=== PATIENT | male | born 1950 | race Caucasian/White ===

== ENCOUNTER 2018-04-24 07:18 | Day surgery (SDC) | payer OTHER, MEDICARE ==
[2018-04-23 10:55] LABS: Absolute Lymphocytes (CBC) 2.1 K/uL (0.7-4.9); Absolute Monocytes 0.7 K/uL (0.1-1.3); Absolute Neutrophil 5.1 K/uL (1.8-8.0); Basophils % 0.8 % (0-1.3); Eosinophils % 1.8 % (0-4.4); Hematocrit 46.2 % (39.6-49.0); Lymphocytes % 25.6 % (15.3-44.8); MPV 7.6 fL (7.6-11.3); Monocytes % 8.5 % (3.3-12.3)
[2018-04-23 11:02] LABS: Potassium 4.3 mmol/L (3.5-5.1)
--- NOTE | 2018-04-23 11:06 | EKG ---
Test Date: 2018-04-23 Test Time: 10:50:59 Transfer Car Operator Drier: RAFFI MEASUREMENT RESULTS: Intervals: Rate: 66 RI: 158 QRSD: 100 QT: 410 QTc: 429 [place]: P: 52 RI: 158 QRS: 15 T: 74 INTERPRETIVE STATEMENTS: Normal sinus rhythm Normal ECG No previous ECG available for comparison Electronically Signed On 04-23-18 11:05:44 JEWELRY MANAGER by Sanjay Durand
--- NOTE | 2018-04-23 11:39 | RAD REPORT ---
EXAM DESCRIPTION: RAD - Chest Pa And Lat (2 Views) - 04/23/2018 11:02 am CLINICAL HISTORY: preop Chest pain. COMPARISON: No comparisons FINDINGS: The lungs are clear. The heart is upper limit of normal in size. No displaced fractures. IMPRESSION: No acute or concerning finding suspected.
[2018-04-24] MEDS ORDERED: Ringers Lactate 1,000 ML IV ONE (08:20)
[2018-04-24] MEDS ORDERED: CIPROFLOXACIN 400 MG/200 ML IV ONE (08:20)
[2018-04-24] MEDS ORDERED: MIDAZOLAM HCL 2 MG/2 ML INJ ONE (09:04)
[2018-04-24] MEDS ORDERED: FENTANYL CITR 100 MCG/2 ML ONE (09:04)
[2018-04-24] MEDS ORDERED: PROPOFOL 200 MG/20 ML VIAL IV ONE (09:04)
[2018-04-24] MEDS ORDERED: ONDANSETRON 4 MG/2 ML VIAL ONE (09:05)
[2018-04-24] MEDS ORDERED: LIDOCAINE 2% MPF 5 ML VIAL ONE (09:05)
--- NOTE | 2018-04-24 09:36 | P.BOP ---
Preoperative diagnosis: infected back subcutaneous mass Postoperative diagnosis: same Primary procedure: Excisional biospy infected back subcutaneous mass 5x5 cm Estimated blood loss: <10cc Specimen: infected mass Findings: infected back subcutaneous mass Anesthesia: General Complications: None Transferred to: Recovery Room Condition: Good
[2018-04-24] MEDS ORDERED: CODEINE 30MG/APAP 300MG TAB ONE (11:40)
--- NOTE | 2018-04-24 20:17 | OP ---
Date of Procedure: 04/24/2018 Surgeon: Otilio Waite MD Preoperative Diagnosis: Infected back, subcutaneous mass, tender. Postoperative Diagnosis: Infected back, subcutaneous mass, tender. Procedure: Excisional biopsy of infected back, subcutaneous mass, 5 x 5 cm with drainage of an absce ss. Estimated Blood Loss: Less than 10 cc. Specimen: Infected mass. Findings: The patient has an infected mass, underneath the patient has an abscess that had some locu lations present. The mass was removed. The abscess was drained. The area is about 5 x 5 cm. Anesthesia: General plus local. Indications: This is a case of a 68-year-old patient, who comes to us with an erythema and drainage and ulceration of the back area with an induration about 5 x 5 cm and subcutaneous mass with infectio n and abscess. The patient said he had a mass there smaller before, but in the last few days, it is getting worse. He has been on antibiotics before but does not seem to be resolving the issue. Benef its, alternatives, and risks of excisional biopsy of infected mass with abscess drainage fully explai maryann to the patient, which include but are not limited to infection, bleeding, damage to adjacent stru ctures, anesthesia complication, nonhealing wound, ND, and even . He also understands this migh t not relieve any symptoms. He might need more than one surgical intervention. He understood, kendra d a consent. The area of concern was marked by me and the patient in the holding room. Description Of Procedure: The patient was brought to the operating room, placed in supine position. Anesthesia was done without complication. A time-out was called. The patient was placed in lateral decubitus position with proper protection. The back area was prepped and draped in a sterile fashio n. Local anesthesia was applied followed by an incision on the wedge fashion to include the skin sin ce there is an ulceration and the biopsy have to be done. The incision was carried down to deep subc utaneous tissue and then we also found that the patient has an abscess component to it. We cleaned t he entire area about 5 x 5 cm with some loculations and tunneling that were carefully explored and dr luque. The area was irrigated. Hemostasis was obtained. Cultures were obtained and the area was pa cked with wet-to-dry dressing. The patient tolerated the procedure well. The patient was sent to re covery in stable condition. Disposition: Home. Activity: As tolerated. No heavy lifting. Followup: Follow up in my office in 1 week. Call for appointment [phone]. Keep area dry until shreyas orrow. Medications: See orders. PANCHITO/ALBERTO Voice ID: [id number] Report ID: [id number]
== END 2018-04-24 12:14 | disposition home health service (06) ==
LOC: OR 07:18
PROVIDERS: ATTEND Surgery
PROC: 0J970ZZ Drainage of Back Subcutaneous Tissue and Fascia, Open Approach (ICD-10-PCS; 2018-04-24)
PROC: 0JB70ZZ Excision of Back Subcutaneous Tissue and Fascia, Open Approach (ICD-10-PCS; principal; 2018-04-24 08:45)
DX: L72.0 Epidermal cyst (principal); L02.212 Cutaneous abscess of back [any part, except buttock and flank]; I10 Essential (primary) hypertension; Z79.82 Long term (current) use of aspirin; Z80.8 Family history of malignant neoplasm of other organs or systems; Z83.3 Family history of diabetes mellitus; Z82.49 Family history of ischemic heart disease and other diseases of the circulatory system
CPT/HCPCS: 10060; 11406; 36415; 71046; 80048; 85025; 87070; 87075; 87205 ×2; 88304; 93005; J0744; J2250; J2405; J2704; J3010

== ENCOUNTER 2022-12-04 15:07 | Emergency (ER) | payer OTHER ==
--- OUTSIDE RECORDS SUMMARY | 2022-12-04 16:00 | XMS REPORT | Continuity of Care Document ---
:[address] [facility] t Address [address] [place] [address] [place] [id number] Care Team Providers Name Role Phone Pcp, Patient Does Not Have A Primary Care Physician +[id number] Therapy, Adc Covid Infusion Attending Clinician Unavailable Harpreet Humphries MD Attending Clinician HARPREET HUMPHRIES Attending Clinician Unavailable ANTOINE Attending Clinician Unavailable Carol Reyes Attending Clinician [phone] Doctor Unassigned, [place] Attending Clinician Unavailable ANTOINE Admitting Clinician Unavailable Payers Payer Name Policy Type Policy Number Effective Date Expiration Date S ourimani MEDICARE PART A \T\ [id number] 2014 B 00:00:00 [facility] [id number] 2016 MEDICARE SUPPLEMENT 00:00:00 [facility] [id number] (MEDICARE REPLACEMENT/ADVANTA GE - PPO) Problems Condition Condition Condition Status Onset Resolution Last Treating Co mments Source Name Details Category Date Date Treatment Clinician Date Hypertensi Hypertensi Problem Active 2020-05 S weeny ve ve 0-01 Communi disorder Disorder 00:00: [facility] Hyperglyce Hyperglyce Problem Active 2020-05 S weeny jyoti jyoti 0-01 Communi 00:00: ty 00 [facility] Allergies, Adverse Reactions, Alerts Allergy Allergy Status Severity Reaction(s) Onset Inactive Treating Comm ents Source Name Type Date Date Clinician Cephalex Propensi Active Other - See 2017 U nivers in ty to comments 8-14 ity of adverse 00:00: [place] reaction 00 Medical s Branch CEPHALEX DRUG Active Other-[facility]nt [facility] ers IN INGREDI 12-18 ity of 00:00: [place] 00 Medical Branch Social History Social Habit Start Date Stop Date Quantity Comments Source Tobacco use and 2016-12-18 2016-12-18 Never used [facility] [place] exposure 00:00:00 00:00:00 Medical Branch Sex Ass[birth year] At [birth year] [facility] [place] 00:00:00 00:00:00 Medical Branch Smoking Status Start Date Stop Date Source Never Smoker [facility] Medications Ordered Filled Start Stop Current Ordering Indication Dosage Frequency Signature Comments Components Source Medication Medication Date Date Medication? Clinician (SIG) Name Name casirivimab 2020-05- No [id number] 1200mg 1,200 mg, Univers -imdevimab 0-01 02-04 Subcutaneo it y of (REGEN-COV 19:30: 18:30 [place], ONCE, [place] (EUA[place] 00 :00 1 dose, On Medical injection Fri Branch 1,200 mg 02/04/21 at 1430, Routine pravastatin 2016-05 Yes 20mg Take 20 mg Univers 20 mg 2-01 by mouth ity of tablet 08:11: at [place] 15 bedtime. Medical Branch LISINOPRIL 2016-05 Yes Take by [facility] ers ORAL 2-01 mouth. ity of 08:11: [place] 15 Medical Branch hydroCHLORO 2016-05 Yes 12.5mg Take 12.5 Univers thiazide 2-01 mg by ity of 12.5 mg 08:11: mouth [place] capsule 15 daily. Medical Branch verapamil 2016-05 Yes 120mg Take 120 Uni vers 120 mg 2-01 mg by ity of tablet 08:11: mouth 3 [place] 15 (three) Medical times Branch daily. pravastatin 2016-05 Yes 20mg Take 20 mg Univers 20 mg 2-01 by mouth ity of tablet 08:11: at [place] 15 bedtime. Medical Branch LISINOPRIL 2016-05 Yes Take by [facility] ers ORAL 2-01 mouth. ity of 08:11: [place] 15 Medical Branch hydroCHLORO 2016-05 Yes 12.5mg Take 12.5 Univers thiazide 2-01 mg by ity of 12.5 mg 08:11: mouth [place] capsule 15 daily. Medical Branch verapamil 2016-05 Yes 120mg Take 120 Uni vers 120 mg 2-01 mg by ity of tablet 08:11: mouth 3 [place] 15 (three) Medical times Branch daily. methylPREDN 2017-0 Yes 84mg Take 21 Uni vers ISolone 8-14 tablets by ity of (MEDROL, 00:00: mouth [place] ELMER,) 4 mg 00 SEE-INSTRU Med ical tablets CTIONS. Branch follow package directions diclofenac 2017-0 Yes 75mg Take 1 Unive rs 75 mg EC 8-14 tablet by ity of tablet 00:00: mouth 2 [place] 00 (two) Medical times Branch daily with meals. methylPREDN 2017-0 Yes 84mg Take 21 Uni vers ISolone 8-14 tablets by ity of (MEDROL, 00:00: mouth [place] ELMER,) 4 mg 00 SEE-INSTRU Med ical tablets CTIONS. Branch follow package directions diclofenac 2017-0 Yes 75mg Take 1 Unive rs 75 mg EC 8-14 tablet by ity of tablet 00:00: mouth 2 [place] 00 (two) Medical times Branch daily with meals. hydrochloro hydrochloro No 1 Q1D hydrochlor [place] thiazide 25 thiazide 25 othiazide Communi mg tablet mg tablet 25 mg ty Take 1 Take 1 tablet Hospita tablet tablet Take 1 l every day every day tablet Cli nics by oral by oral every day route. route. by oral route. ivermectin ivermectin No 1 BID ivermectin [place] 3 mg tablet 3 mg tablet 3 mg C ommuni Take 1 Take 1 tablet ty tablet tablet Take 1 Hospita twice a day twice a day tablet l by oral by oral twice a Clinic s route as route as day by directed directed oral route for 5 days. for 5 days. as directed for 5 days. lisinopril lisinopril No 1 Q1D lisinopril [place] 40 mg 40 mg 40 mg Communi tablet Take tablet Take tablet ty 1 tablet 1 tablet Take 1 Hospi ta every day every day tablet l by oral by oral every day Clin ics route. route. by oral route. pravastatin pravastatin No 1 Q1D pravastati [place] 40 mg 40 mg n 40 mg Communi tablet Take tablet Take tablet ty 1 tablet 1 tablet Take 1 Hospi ta every day every day tablet l by oral by oral every day Clin ics route. route. by oral route. prednisone prednisone No 1 BID prednisone [place] 20 mg 20 mg 20 mg Communi tablet Take tablet Take tablet ty 1 tablet 1 tablet Take 1 Hospi ta twice a day twice a day tablet l by oral by oral twice a Clinic s route as route as day by directed directed oral route for 7 days. for 7 days. as directed for 7 days. verapamil verapamil No 1 TID verapamil [place] 40 mg 40 mg 40 mg Communi tablet Take tablet Take tablet ty 1 tablet 3 1 tablet 3 Take 1 H ospita times a day times a day tablet 3 l by oral by oral times a Clinic s route. route. day by oral route. Zithromax Zithromax No Zithromax [place] Z-Elmer 250 Z-Elmer 250 Z-Elmer 250 Communi mg tablet mg tablet mg tablet ty TAKE 2 TAKE 2 TAKE 2 Hospita TABLETS TABLETS TABLETS l (500 MG) BY (500 MG) BY (500 MG) Clinics ORAL ROUTE ORAL ROUTE BY ORAL ONCE DAILY ONCE DAILY ROUTE ONCE FOR 1 DAY FOR 1 DAY DAILY FOR THEN 1 THEN 1 1 DAY THEN TABLET (250 TABLET (250 1 TABLET MG) BY ORAL MG) BY ORAL (250 MG) ROUTE ONCE ROUTE ONCE BY ORAL DAILY FOR 4 DAILY FOR 4 ROUTE ONCE DAYS DAYS DAILY FOR 4 DAYS Immunizations Ordered Filled Immunization Date Status Comments [facility] e Immunization Name Name COVID-19, mRNA, COVID-19, mRNA, 2020-08-01 Completed [facility] LNP-S, PF, 100 LNP-S, PF, 100 00:00:00 [facility] mcg/0.5 mL dose mcg/0.5 mL dose SARS-COV-2 COVID-19 2020-08-01 Completed Unive rsity of MODERNA VACCINE 00:00:00 [facility] SARS-COV-2 COVID-19 2020-08-01 Completed Unive rsity of MODERNA VACCINE 00:00:00 [facility] COVID-19, mRNA, COVID-19, mRNA, 2020-07-04 Completed [facility] LNP-S, PF, 100 LNP-S, PF, 100 00:00:00 [facility] mcg/0.5 mL dose mcg/0.5 mL dose SARS-COV-2 COVID-19 2020-07-04 Completed Unive rsity of MODERNA VACCINE 00:00:00 [facility] SARS-COV-2 COVID-19 2020-07-04 Completed Unive rsity of MODERNA VACCINE 00:00:00 [facility] Vital Signs Vital Name Observation Time Observation Value Comments Source Systolic blood 2021-02-04 19:17:00 159 mm[Hg] Univer sity of pressure [facility] Diastolic blood 2021-02-04 19:17:00 96 mm[Hg] Unive rsity of pressure [facility] Heart rate 2021-02-04 19:17:00 87 /min [facility] Body temperature 2021-02-04 19:17:00 36.94 [facility] [place] [facility] Respiratory rate 2021-02-04 19:17:00 18 /min [facility] Oxygen saturation in 2021-02-04 19:17:00 95 /min [facility] blood by [facility] Pulse oximetry Branch Body height 2021-02-04 18:09:00 180.3 cm [facility] Body weight 2021-02-04 18:09:00 112.492 kg [facility] BMI 2021-02-04 18:09:00 34.59 kg/m2 [facility] BP Diastolic 2021-02-04 00:00:00 108 mm[Hg] [facility] s Height 2021-02-04 00:00:00 71 [in_i] [facility] s BMI (Body Mass 2021-02-04 00:00:00 34.6 kg/m2 [facility] s BP Systolic 2021-02-04 00:00:00 173 mm[Hg] [facility] s Body Weight 2021-02-04 00:00:00 3971.2 [oz_av] [facility] Procedures Procedure Date / Time Performed Performing Clinician [facility] e CONSENT/REFUSAL FOR 2021-02-04 05:01:00 Doctor Unassigned, No Un [facility] DIAGNOSIS AND Name Medical Media TREATMENT Plan of Care Planned Activity Planned Date Details Comments Source Instructions [facility] Encounters Start End Encounter Admission Attending Care Care Encounter Source Date/Time Date/Time Type Type Clinicians Facility Department ID 2021-02-04 2021-02-04 Nurse Therapy, Adc Covid Infusion [facility] [id number] Univers 13:00:03 14:00:03 Visit Harpreet Humphries [id number] [place] [id number] [place] [id number] [place] [id number] Branch 2021-02-04 2021-02-04 Outpatient [facility] [id number] Univers 13:30:00 13:30:00 HARPREET itarelis of [facility] 2021-02-04 2021-02-04 Outpatient [facility] 111 [place] 01:03:00 01:03:00 _L 1001 Commun i ty Hospita l [facility] 2021-02-04 2021-02-04 Outpatient [facility] b1e [id number] 00:00:00 00:00:00 , Carol [id number] Maira [id number] 2021-02-04 2021-02-04 Kaylan [facility] [place] - [place] [id number] [place] 00:00:00 00:00:00 [facility] MARLEEN gonzalezP-C: Hospital - ty [address] [place] [address], [facility] [address], [place] [address] , Ph. 2021-02-04 2021-02-04 Orders Doctor MITCHELL [id number] [facility] 00:00:00 00:00:00 Only Unassigned, DILLAN [id number] ity of [place] [facility] [id number] [place] as [id number] [place] [address] Branch 2021-02-03 2021-02-03 Outpatient [facility] 111 [place] 02:39:00 02:39:00 _L 0930 Commun i ty Hospita l Clinics 2020-08-01 2020-08-01 Outpatient [facility] [id number] Univers 12:50:00 [facility]50:[facility]-07[facility] 2020-07-04 Outpatient [facility] [id number] [facility] 13:00:00 13:00:00 [facility] Results This patient has no known results.
[2022-12-04] MEDS ORDERED: BUPIVACAINE 0.5% PF 10 ML VIAL ONE (17:10)
[2022-12-04] MEDS ORDERED: LIDOCAINE 1% MPF 5 ML VIAL ONE (17:10)
[2022-12-04] MEDS ORDERED: TDAP (DIPHTH,PERTUSS(ACELL),TET VAC) 0.5 ML VIAL IMVAC ONE (17:10)
--- NOTE | 2022-12-04 18:30 | ER ---
Nurse's Notes [facility] Name: Abhijit Plummer Age: 72 yrs Sex: Male : 1950 Arrival Date: 12/04/2022 Time: 15:07 Bed 12 Private MD: Diagnosis: Laceration without foreign body of left thumb without damage to nail Presentation: 12/04 15:25 Chief complaint: Patient states: he was using his table saw today and he cut his left cm10 thumb. Pt has jagged laceration to left thumb, bleeding controlled. Tetanus >10 years. Coronavirus screen: Vaccine status: Patient reports receiving the 2nd dose of the covid vaccine. Ebola Screen: No symptoms or risks identified at this time. Initial Sepsis Screen: Does the patient meet any 2 criteria? No. Patient's initial sepsis screen is negative. Does the patient have a suspected source of infection? No. Patient's initial sepsis screen is negative. Risk Assessment: Do you want to hurt yourself or someone else? Patient reports no desire to harm self or others. Onset of symptoms was December 04, 2022. 15:25 Method Of Arrival: Ambulatory cm10 15:25 Acuity: GISELLE 4 cm10 Historical: - Allergies: 15:27 No Known Allergies; cm10 - PMHx: 15:27 Hypertensive disorder; high cholesterol; cm10 - Immunization history:: Adult Immunizations. - Social history:: Smoking status: Patient denies any tobacco usage or history of. Screenin:30 [facility] ED Fall Risk Assessment (Adult) History of falling in the last 3 months, jl7 including since admission No falls in past 3 months (0 pts) Score/Fall Risk Level 0 - 2 = Low Risk Oriented to surroundings, Maintained a safe environment. Abuse screen: Denies threats or abuse. Denies injuries from another. Nutritional screening: No deficits noted. Tuberculosis screening: No symptoms or risk factors identified. Assessment: 16:00 General: Appears in no apparent distress. uncomfortable, Behavior is calm, cooperative, jl7 appropriate for age. Pain: Denies pain. Neuro: Level of Consciousness is awake, alert, obeys commands, Oriented to person, place, time, situation. Cardiovascular: Patient's skin is warm and dry. Respiratory: Airway is patent Respiratory effort is even, unlabored, Respiratory pattern is regular, symmetrical. Derm: Skin is pink, warm \T\ dry. Musculoskeletal: Range of motion: intact in all extremities. Injury Description: Laceration sustained to left thumb is jagged, 0.5 to 2.5 cm long, was sustained 30-60 minutes ago. Vital Signs: 15:25 BP 159 / 101; Pulse 81; Resp 16; Temp 98.1; Pulse Ox 97% ; Weight 104.33 kg; Height 5 cm10 ft. 10 in. ; Pain 3/10; 18:35 BP 180 / 101; Pulse 75; Resp 15; Pulse Ox 97% ; jl7 15:25 Body Mass Index 33.00 (104.33 kg, 177.8 cm) cm10 15:25 Pain Scale: Adult cm10 18:35 Pt reports he will take his htn medication when he gets home. jl7 ED Course: 15:08 Patient arrived in ED. am2 15:14 Sravanthi Meehan FNP-C is PHCP. kb 15:14 Jovani Coleman MD is Attending Physician. kb 15:27 Triage completed. cm10 15:28 Arm band placed on Patient placed in waiting room. cm10 17:04 Zenobia Hahn, AMANUEL is Primary Nurse. jl7 17:30 Patient has correct armband on for positive identification. Provided Education on: Use jl7 of call sung. 18:00 Assist provider with laceration repair on left thumb that was 2.5 cm. or less using jl7 sutures. Set up tray. Performed by Sravanthi PENA Dressed with band aid, Patient tolerated well. Patient did not have IV access during this emergency room visit. 18:45 Finger-Thumb Left In Process Unspecified. EDMS Administered Medications: 17:12 Drug: Tetanus-Diphtheria Toxoid IM Adult 0.5 ml {Magnetizer: [employer] ([employer] jl7 Exp: 05/24/2023. Lot #: [id number]. } Route: IM; Site: right deltoid; 18:00 Follow up: Response: (VIS) Vaccine information sheet provided today. Questions and/or jl7 concerns addressed. VIS edition date: Dec 10, 2020.; No adverse reaction 17:13 Drug: Lidocaine Infiltration (1 %) 1 vials {Note: administered by ERP.} Volume: 5 ml; jl7 Route: Infiltration; 18:30 Follow up: Response: No adverse reaction jl7 17:13 Drug: Bupivacaine Infiltration (0.5 %) 1 vials {Note: administered by ERP.} Volume: 10 jl7 ml; Route: Infiltration; 17:30 Follow up: Response: No adverse reaction jl7 18:25 Drug: Trimethoprim-Sulfamethoxazole PO (160 mg-800 mg (DS) 1 tablet Route: PO; jl7 18:30 Follow up: Response: Medication administered at discharge. jl7 Medication: 17:30 Vaccine Information Statement (VIS) provided today. Questions and/or concerns jl7 addressed. VIS edition date: December 10, 2022. Outcome: 18:29 Discharge ordered by . kb 18:40 Discharged to home ambulatory. jl7 18:40 Condition: stable 18:40 Discharge instructions given to patient, Instructed on discharge instructions, follow up and referral plans. medication usage, Demonstrated understanding of instructions, follow-up care, medications, Prescriptions given X 1. 19:27 Patient left the ED. jl7 Signatures: Dispatcher [employer] EDMS Sravanthi Meehan, BAG MACHINE OPERATOR HELPER-C BAG MACHINE OPERATOR HELPER-Zenoiba Arias, RN RN jl7 Valarie Garcia Clarissa RN RN cm10
--- NOTE | 2022-12-04 18:30 | EDPHYS ---
Physician Documentation [facility] Name: Abhijit Plummer Age: 72 yrs Sex: Male : 1950 Arrival Date: 12/04/2022 Time: 15:07 Bed 12 Private MD: ED Physician Jovani Coleman HPI: 12/04 18:02 This 72 yrs old Male presents to ER via Ambulatory with complaints of Thumb Injury, kb Laceration. 18:02 The patient has a laceration related to: doing carpentry, from a power saw, occurred at home, and there are no complicating factors. The injury was accidental. The laceration(s) is(are) located on the palmar aspect of distal phalanx of left thumb. Onset: The symptoms/episode began/occurred just prior to arrival. Associated signs and symptoms: The patient has no apparent associated signs or symptoms. The patient has not experienced similar symptoms in the past. The patient has not recently seen a physician. Historical: - Allergies: 15:27 No Known Allergies; cm10 - PMHx: 15:27 Hypertensive disorder; high cholesterol; cm10 - Immunization history:: Adult Immunizations. - Social history:: Smoking status: Patient denies any tobacco usage or history of. ROS: 18:01 Constitutional: Negative for fever, chills, and weight loss. kb 18:01 Skin: Positive for avulsion, laceration(s), of the palmar aspect of distal phalanx of left thumb. 18:01 All other systems are negative. Exam: 18:02 Constitutional: This is a well developed, well nourished patient who is awake, alert, kb and in no acute distress. Head/Face: Normocephalic, atraumatic. ENT: Moist Mucous membranes Respiratory: Respirations even and unlabored. No increased work of breathing. Talking in full sentences MS/ Extremity: Pulses equal, no cyanosis. Neurovascular intact. Full, normal range of motion. Neuro: Awake and alert, GCS 15, oriented to person, place, time, and situation. Moves all extremities. Normal gait. 18:02 Skin: injury, avulsion(s), a very small of the palmar aspect of distal phalanx of left thumb, laceration(s), the wound is approximately 2 cm(s), of the palmar aspect of distal phalanx of left thumb, that can be described as clean, no foreign body, irregular, jagged, without bleeding. Vital Signs: 15:25 BP 159 / 101; Pulse 81; Resp 16; Temp 98.1; Pulse Ox 97% ; Weight 104.33 kg; Height 5 cm10 ft. 10 in. ; Pain 3/10; 18:35 BP 180 / 101; Pulse 75; Resp 15; Pulse Ox 97% ; jl7 15:25 Body Mass Index 33.00 (104.33 kg, 177.8 cm) cm10 15:25 Pain Scale: Adult cm10 18:35 Pt reports he will take his htn medication when he gets home. jl7 Procedures: 17:08 Nerve block: (digital) of palmar aspect of proximal phalanx of left thumb Medication: bebo Lidocaine 1% without epinephrine Marcaine 0.5%, Amount: 5 mls were injected, Effect: the patient has resolution of the pain, Set up for procedure. Performed by Sravanthi MAHERC Patient tolerated well. Laceration: 18:00 Wound Repair of 2cm ( 0.8in ) subcutaneous laceration to palmar aspect of distal kb phalanx of left thumb. Irregularly shaped.. Skin/tissue flap noted.. Distal neuro/vascular/tendon intact. Wound prep: Extensive cleansing with betadine by me, Wound irrigation with saline by me, Wound margin revised moderately. Skin closed with 7 5-0 Vicryl using simple sutures and sterile technique. Patient tolerated well. MDM: 15:14 Patient medically screened. kb 18:01 Differential diagnosis: abrasion, fracture, laceration, FB. Data reviewed: vital signs, kb nurses notes. Counseling: I had a detailed discussion with the patient and/or guardian regarding: the historical points, exam findings, and any diagnostic results supporting the discharge/admit diagnosis, the need for outpatient follow up, a family practitioner, to return to the emergency department if symptoms worsen or persist or if there are any questions or concerns that arise at home. 18:29 Independent interpretation of the following test(s) in the Emergency Department X-Ray: bebo My interpretation is no FB or acute fx. 18:29 ED course: Pt does not want keflex due to bad side effects in the past. 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 jl7 Exp: 05/24/2023. Lot #: [id number]. } Route: IM; Site: right deltoid; 18:00 Follow up: Response: (VIS) Vaccine information sheet provided today. Questions and/or jl7 concerns addressed. VIS edition date: Dec 10, 2020.; No adverse reaction 17:13 Drug: Lidocaine Infiltration (1 %) 1 vials {Note: administered by ERP.} Volume: 5 ml; jl7 Route: Infiltration; 18:30 Follow up: Response: No adverse reaction jl7 17:13 Drug: Bupivacaine Infiltration (0.5 %) 1 vials {Note: administered by ERP.} Volume: 10 jl7 ml; Route: Infiltration; 17:30 Follow up: Response: No adverse reaction jl7 18:25 Drug: Trimethoprim-Sulfamethoxazole PO (160 mg-800 mg (DS) 1 tablet Route: PO; jl7 18:30 Follow up: Response: Medication administered at discharge. jl7 Disposition: 19:25 I reviewed the patient's care provided by the Advanced Practice Provider and agree with jrEli the diagnosis and treatment plan. Disposition Summary: 12/04/22 18:29 Discharge Ordered Location: Home kb Condition: Stable kb Diagnosis - Laceration without foreign body of left thumb without damage to nail kb Followup: kb - With: Emergency Department - When: As needed - Reason: Worsening of condition Followup: kb - With: Private Physician - When: 2 - 3 days - Reason: Recheck today's complaints, Continuance of care, Re-evaluation by your physician Discharge Instructions: - Discharge Summary Sheet kb - Laceration Care, Adult, [id number] kb Forms: - Medication Reconciliation Form kb - Thank You Letter kb - Antibiotic Education kb - Prescription Opioid Use kb - Patient Portal Instructions kb Prescriptions: - Bactrim DS 800-160 mg Oral Tablet - take 1 tablet by ORAL route every 12 hours for 10 days; 20 tablet; Refills: 0, kb Product Selection Permitted Signatures: Dispatcher [employer] EDMS Sravanthi Meehan, BECKY LAST-Zenobia Arias RN RN jl7 Jovani Coleman MD MD [id number] Brittani Waite RN RN cm10 Corrections: (The following items were deleted from the chart) 18:01 18:00 Wound Repair of 2cm ( 0.8in ) subcutaneous laceration to palmar aspect of kb proximal phalanx of left thumb. Irregularly shaped.. Skin/tissue flap noted.. Distal neuro/vascular/tendon intact. Anesthesia: Digital block administered with 1% lidocaine. Wound prep: Extensive cleansing with betadine by me, Wound irrigation with saline by me, Wound margin revised moderately. Skin closed with 7 5-0 Vicryl using simple sutures and sterile technique. Patient tolerated well. 18:45 17:47 Hand Left 3 View+RAD.RAD.BRZ ordered. EDMS EDMS
[2022-12-04] MEDS ORDERED: SMZ./TMP. 800/160 MG TABLET ONE (18:33)
--- NOTE | 2022-12-04 19:05 | RAD REPORT ---
EXAM DESCRIPTION: - Finger-Thumb Left - 12/04/2022 6:44 pm CLINICAL HISTORY: PAIN COMPARISON: No comparisons FINDINGS: No acute left thumb fracture identified. Small well corticated fragment along the radial a spect of the thumb metatarsal head is favored chronic. No donor site visualized. No radiopaque foreig n body . IMPRESSION: No acute osseus abnormality involving the left thumb.
[2022-12-04 20:06] VITALS: TEMP 98.1; O2SAT 97
[2022-12-04 20:08] VITALS: BP 180/101
== END 2022-12-04 19:27 | disposition home or self-care (01) ==
LOC: ER 15:07
PROC: 0HQGXZZ Repair Left Hand Skin, External Approach (ICD-10-PCS; principal; 2022-12-04)
DX: S61.012A Laceration without foreign body of left thumb without damage to nail, initial encounter (principal); Z23 Encounter for immunization
CPT/HCPCS: 73140; 90471; 64450; 99284; 12001; J2001

== ENCOUNTER 2025-02-24 11:47 | Day surgery (SDC) | payer OTHER ==
[2025-02-12 11:36] LABS: Absolute Lymphocytes (CBC) 2.1 K/uL (0.7-4.9); Hematocrit 44.1 % (39.6-49.0); Hemoglobin 14.8 g/dL (13.6-17.9); MCH 29.1 pg (27.0-35.0); MCHC 33.5 g/dL (32.0-36.0); MCV 86.7 fL (80-100); MPV 7.2 fL (7.6-11.3); Nucleated RBC Absolute Count 0.0 (0-0); Nucleated Red Blood Cells % 0.1 % (0-0); RBC Red Blood Cell Count 5.08 M/uL (4.33-5.43); White Blood Count 8.20 thou/uL (4.3-10.9)
[2025-02-12 11:39] LABS: Urine Microscopic Reflex YN NO UMIC
[2025-02-12 11:43] LABS: PT Prothrombin Time 12.2 SECONDS (10-13.0); Protime INR 1.08
--- NOTE | 2025-02-12 11:49 | RAD REPORT ---
EXAMINATION: TWO VIEW CHEST XR CLINICAL INDICATION: PRE PROCEDURE TECHNIQUE: 2 views of the chest was performed. COMPARISON: 04/23/2018 FINDINGS: The lungs are hyperexpanded suggesting COPD. The heart is upper limit of normal in size. No displaced fractures evident. Small hiatal hernia. IMPRESSION: COPD is suspected without acute finding identified.
[2025-02-12 11:51] LABS: Anion Gap 7.6 mEq/L (5.0-15.0); BUN Blood Urea Nitrogen 25.0 mg/dL (7-18); Glucose Level 111.0 mg/dL (74-106); Potassium 3.6 mEq/L (3.5-5.1)
[2025-02-24] MEDS ORDERED: FENTANYL CITR 100 MCG/2 ML ONE ×2 (11:55→13:09)
[2025-02-24] MEDS ORDERED: LIDOCAINE 1% MPF 5 ML VIAL ONE (11:55)
[2025-02-24] MEDS: Ringers Lactate 1,000 ML IV ONE (12:15)
[2025-02-24] MEDS ORDERED: GENTAMICIN 80 MG/100 ML BAG 0 MG/0 ML BAG IV ONE (12:30)
[2025-02-24] MEDS: AMPICILLIN SODIUM 2 GM/VIAL VIAL ONE (12:35)
[2025-02-24] MEDS: Gentamicin Inj 240 MG in NA CHLORIDE 0.9% 100 ML IV ONE (12:36)
[2025-02-24] MEDS ORDERED: NS 0.9% VIAL 10 ML ONE ×2 (12:42→12:44)
[2025-02-24] MEDS ORDERED: Phenylephrine HCl 10 MG/ML 1 ML VIAL ONE (12:56)
[2025-02-24] MEDS ORDERED: ROCURONIUM 50 MG/5 ML VIAL IV ONE (13:05)
[2025-02-24] MEDS ORDERED: ONDANSETRON 4 MG/2 ML VIAL ONE (13:12)
[2025-02-24] MEDS ORDERED: EPHEDRINE SULF 50 MG/ML VIAL ONE (13:16)
--- NOTE | 2025-02-24 14:09 | P.OP ---
Date of Service: 02/24/25 Preoperative diagnoses: BPH with LUTS Postoperative diagnoses: BPH with LUTS Principal procedures: Bipolar transurethral resection of the prostate Indication for procedure: 75-year-old gentleman with bothersome obstructive LUTS and nocturia refractory to silodosin and intolerant to other alpha-laura therapy. Because of the malorie kayode of the obstruction observed, only TURP or other resection/ablative procedure would be effective. He was not a good candidate for the UroLift. Procedure note: The patient was consented in the preoperative holding area before being transferred to the operative suite where general anesthesia was induced. He was given ampicillin 2 g and gentamicin 240 mg IV antimicrobial prophylaxis, and pneumoboots were provided for DVT prophylaxis. He was placed in the lithotomy position, padded and secured to the table appropriately. His genitalia was prepped with Hibiclens and he was draped in standard fashion. The case was begun using urethral sounds to dilate the meatus and fossa navicularis from 22 Angolan to 30 Angolan with ease. I was then able to pass a 26 x 27 Angolan bipolar resectoscope sheath via his urethra using a visual obturator and ultimately navigating beyond the prostatic urethra entering the bladder. I decompressed the bladder of fluid and urine and then switched the visual obturator for a thick bipolar resection loop, which I then used to begin resecting the elevated median bar with the ureteral orifices and direct vision, until the median bar at the bladder neck was level with the trigone. I then continued the resection from the bladder neck down to the verumontanum to create a smooth trough before extending into the left lateral lobe and resecting from the bladder neck to the apex of the prostate from posterior to anterior. I similarly resected on the patient's right side posteriorly and extended up the prostate until the anterior. Ilich evacuation and fulguration was performed at multiple phases throughout the operation. With his bladder completely decompressed, I reassessed the resection and continued resection until no residual intraurethrally intruding adenoma was appreciable. I ensured all prostate chips were removed from his bladder, and with his bladder completely decompressed, I ensured fulguration and complete hemostasis. In the end, there was a beautiful continuous channel evident from the verumontanum all the way into the bladder neck, widely patent. Capsule was visible within the lateral lobes bilaterally, consistent with complete resection. As a result, once all prostate chips were removed and the prostate fossa was completely hemostatic with no fluid in flow, I then retrograde filled his bladder and passed a 24 Angolan three-way Romo catheter via his urethra into his bladder with ease, after I removed the resectoscope sheath. I then placed 30 cc of sterile water into the balloon, and the catheter was connected to the floor bag with slow drip CBI initiated using normal saline. The eflux of urine was crystal-clear. The catheter was secured to his upper thigh using a StatLock after he was taken out of the lithotomy position. He was then awakened from general anesthesia before being transferred to a stretcher. He was then transferred to the recovery room in good condition. Complications: None Discharge disposition: Voiding trial on Sunday. Follow-up in approximately 3 months interval assessment unless he has significantly bothersome LUTS that require sooner visit.
[2025-02-24 14:11] VITALS: TEMP 97.4
[2025-02-24] MEDS ORDERED: OXYBUTYNIN ER 5 MG TAB PO ONE (14:56)
[2025-02-24] MEDS ORDERED: PHENAZOPYRIDINE 100MG TAB PO ONE (14:56)
[2025-02-24] MEDS ORDERED: CODEINE 30MG/APAP 300MG TAB ONE (14:56)
[2025-02-24] MEDS: CODEINE 30MG/APAP 300MG TAB PO PRN (14:59)
[2025-02-24] MEDS: OXYBUTYNIN ER 5 MG TAB PO ONE (14:59)
[2025-02-24] MEDS: PHENAZOPYRIDINE 100MG TAB PO ONE (14:59)
[2025-02-24 15:42] VITALS: BP 131/80; O2SAT 98
== END 2025-02-24 15:30 | disposition home or self-care (01) ==
LOC: OR 11:47
PROVIDERS: ATTEND Urology
PROC: 0VT08ZZ Resection of Prostate, Via Natural or Artificial Opening Endoscopic (ICD-10-PCS; principal; 2025-02-24 13:00)
DX: N40.1 Benign prostatic hyperplasia with lower urinary tract symptoms (principal); R35.1 Nocturia
CPT/HCPCS: 93005; 85025; 80048; 36415; 85610; 88305; 81003; 71046; 52601; A4216 ×2; J2704; J2003; J2371; J1580; J3010 ×2; J2405; J0290; J7120

== ENCOUNTER 2025-02-28 09:35 | Emergency (ER) | payer OTHER ==
--- NOTE | 2025-02-28 11:14 | EDPHYS ---
Physician Documentation [facility] Name: Abhijit Plummer Age: 75 yrs Sex: Male : 1950 Arrival Date: 02/28/2025 Time: 09:35 Bed 19 Private MD: ED Physician Pablo Mancera HPI: 02/28 10:05 This 75 yrs old Male presents to ER via Ambulatory with complaints of Urinary Problem. rn 10:05 Patient reports had TURP with Dr. Billings this past week, had Romo catheter initially, rn removed yesterday, now having difficulty urinating. Reports abdominal fullness. Noticed blood in urine yesterday but not today. No fever or chills.. Historical: - Allergies: 09:39 Cephalexin; ll1 09:39 TAMSULOSIN; ll1 - PMHx: 09:39 High Cholesterol; Hypertensive disorder; ll1 - PSHx: 09:43 TURP; ll1 - Immunization history:: Adult Immunizations up to date. - Infectious Disease History:: Denies. - Social history:: Smoking status: Patient denies any tobacco usage or history of. - Family history:: not pertinent. - Hospitalizations: : No recent hospitalization is reported. ROS: 10:05 Constitutional: Negative for fever, chills, and weight loss, Cardiovascular: Negative rn for chest pain, palpitations, and edema, Respiratory: Negative for shortness of breath, cough, wheezing, and pleuritic chest pain, Abdomen/GI: Negative for abdominal pain, nausea, vomiting, diarrhea, and constipation, : Positive for urinary retention MS/Extremity: Negative for injury and deformity, Skin: Negative for injury, rash, and discoloration, Neuro: Negative for headache, weakness, numbness, tingling, and seizure, Exam: 10:05 Constitutional: This is a well developed, well nourished patient who is awake, alert, rn and in no acute distress. Cardiovascular: Regular rate and rhythm. No pulse deficits. Respiratory: No increased work of breathing, no retractions or nasal flaring. Abdomen/GI: Soft, mild suprapubic fullness noted, no peritoneal signs Vital Signs: 10:03 BP 133 / 76; Pulse 86; Resp 17; Temp 97.6; Pulse Ox 99% ; ll1 11:23 BP 129 / 73; Pulse 81; Resp 16; Temp 98.2; Pulse Ox 100% on R/A; dd2 MDM: 09:39 Medical Screening Exam initiated rn 11:11 Differential diagnosis: urinary retention. Data reviewed: vital signs, nurses notes, rn and as a result, I will discharge patient. Care significantly affected by the following chronic conditions: Hypertension, Hyperlipidemia. Counseling: I had a detailed discussion with the patient and/or guardian regarding the historical points, exam findings, and any diagnostic results supporting the discharge/admit diagnosis, the need for outpatient follow up, to return to the emergency department if symptoms worsen or persist or if there are any questions or concerns that arise at home. Response to treatment: the patient's symptoms have markedly improved after treatment, and as a result, I will discharge patient. Special discussion: I discussed with the patient/guardian in detail that at this point there is no indication for admission to the hospital. It is understood, however, that if the symptoms persist or worsen the patient needs to return immediately for re-evaluation. Based on the history and exam findings, there is no indication for further emergent testing or inpatient evaluation. I discussed with the patient/guardian the need to see the urologist for further evaluation of the symptoms. ED course: Patient tolerated Romo catheter well, no hematuria and nursing states there was no resistance. Drained greater than 600 cc urine out. Will discharge home, will make appointment with Dr. Billings for further instructions. Return precautions given and understood.. 02/28 09:50 Order name: Bladder Scanner; Complete Time: 09:56 rn 02/28 10:09 Order name: Romo; Complete Time: 10:37 rn Administered Medications: No medications were administered Disposition Summary: 02/28/25 11:13 Discharge Ordered Notes: Location: Home rn Problem: new rn Symptoms: have improved rn Condition: Stable rn Diagnosis - Retention of urine, unspecified rn Followup: rn - With: Private Physician - When: As needed - Reason: Recheck today's complaints, Re-evaluation by your physician Discharge Instructions: - Discharge Summary Sheet rn - Acute Urinary Retention, Male rn Forms: - Medication Reconciliation Form rn - Antibiotic speech language pathologist prn - Prescription Opioid Use rn - Patient Portal Instructions rn - Leadership Thank You Letter rn Signatures: Pablo Mancera MD MD rn Lewis, Lynsay, RN RN ll1 SHWETA BLUE RN RN dd2
--- NOTE | 2025-02-28 11:14 | ER ---
Nurse's Notes [facility] Name: Abhijit Plummer Age: 75 yrs Sex: Male : 1950 Arrival Date: 02/28/2025 Time: 09:35 Bed 19 Private MD: Diagnosis: Retention of urine, unspecified Presentation: 02/28 09:44 Chief complaint: Patient states: Romo taken out Sunday from [facility] on Sunday. Dribbling ll1 and unable to urinate well since last night. Coronavirus screen: Client denies travel out of the [place] in the last 14 days. At this time, the client does not indicate any symptoms associated with coronavirus-19. Ebola Screen: Patient denies travel to an Ebola-affected area in the 21 days before illness onset. Initial Sepsis Screen: Does the patient meet any 2 criteria? No. Patient's initial sepsis screen is negative. Does the patient have a suspected source of infection? No. Patient's initial sepsis screen is negative. Risk Assessment: Do you want to hurt yourself or someone else? Patient reports no desire to harm self or others. Onset of symptoms was February 27, 2025. 09:44 Method Of Arrival: Ambulatory ll1 09:44 Acuity: GISELLE 3 ll1 Triage Assessment: 09:46 General: Appears uncomfortable, Behavior is calm, cooperative, appropriate for age. ll1 Pain: Complains of pain in pelvis Quality of pain is described as aching. Neuro: No deficits noted. Cardiovascular: No deficits noted. Respiratory: No deficits noted. : Reports incontinence, inability to void, pain in suprapubic area. Historical: - Allergies: 09:39 Cephalexin; ll1 09:39 TAMSULOSIN; ll1 - PMHx: 09:39 High Cholesterol; Hypertensive disorder; ll1 - PSHx: 09:43 TURP; ll1 - Immunization history:: Adult Immunizations up to date. - Infectious Disease History:: Denies. - Social history:: Smoking status: Patient denies any tobacco usage or history of. - Family history:: not pertinent. - Hospitalizations: : No recent hospitalization is reported. Screenin:10 [facility] ED Fall Risk Assessment (Adult) History of falling in the last 3 months, ll1 including since admission No falls in past 3 months (0 pts) Confusion or Disorientation No (0 pts) Intoxicated or Sedated No (0 pts) Impaired Gait No (0 pts) Mobility Assist Device Used No (0 pt) Altered Elimination Yes (1 pt) Score/Fall Risk Level 0 - 2 = Low Risk Maintained a safe environment, Hourly rounding (assess needs \T\ fall precautionary measures) done. Abuse screen: Denies threats or abuse. Nutritional screening: No deficits noted. Tuberculosis screening: No symptoms or risk factors identified. Assessment: 10:03 Reassessment: Patient and/or family updated on plan of care and expected duration. Pain ll1 level reassessed. 587 ml during bladder scan. Vital Signs: 10:03 BP 133 / 76; Pulse 86; Resp 17; Temp 97.6; Pulse Ox 99% ; ll1 11:23 BP 129 / 73; Pulse 81; Resp 16; Temp 98.2; Pulse Ox 100% on R/A; dd2 ED Course: 09:38 Patient arrived in ED. ts1 09:39 Pablo Mancera MD is Attending Physician. rn 09:39 Arm band placed on Patient placed in an exam room, on a stretcher. ll1 09:46 Triage completed. ll1 09:47 Patient has correct armband on for positive identification. Bed in low position. ll1 Provided Education on: ER procedures and process. 10:37 No provider procedures requiring assistance completed. Romo cath inserted, using dd2 sterile technique, 16 Fr., by az, balloon inflated, to gravity drainage, Patient tolerated well. 11:23 Patient did not have IV access during this emergency room visit. dd2 Administered Medications: No medications were administered Medication: 10:11 VIS not applicable for this client. ll1 Outcome: 11:13 Discharge ordered by . rn 11:23 Discharged to home ambulatory, dd2 11:23 Condition: stable 11:23 Discharge instructions given to patient, significant other, Instructed on discharge instructions, follow up and referral plans. Demonstrated understanding of instructions, follow-up care, 11:25 Patient left the ED. dd2 Signatures: Pablo Mancera MD MD rn Lewis, Lynsay, RN RN ll1 Kinsey Cornejo PAS PAS ts1 SHWETA BLUE RN RN dd2
[2025-02-28 12:51] VITALS: BP 129/73; TEMP 98.2; O2SAT 100
== END 2025-02-28 11:25 | disposition home or self-care (01) ==
LOC: ER 09:35
DX: R33.9 Retention of urine, unspecified (principal); Z98.890 Other specified postprocedural states
CPT/HCPCS: 51702; 99284